=== PATIENT | male | born 1975 | race Caucasian/White ===

== ENCOUNTER 2022-01-23 19:06 | Emergency (ER) | payer SELFPAY ==
[~2022-01-23] VITALS: Ht 167.6 cm; Wt 82.0 kg
[2022-01-23 19:09] VITALS: BP 121/82
[2022-01-23] MEDS ORDERED: ONDA4TAB50 MT (19:55)
[2022-01-23] MEDS ORDERED: ONDANSETRON 4MG ODT PO ONE (20:00)
== END 2022-01-23 20:13 | disposition home or self-care (01) ==
LOC: ER 19:06
DX: R11.2 Nausea with vomiting, unspecified (principal); Z88.0 Allergy status to penicillin
CPT/HCPCS: 99283; Q0162